=== PATIENT | female | born 1975 | race Caucasian/White ===

== ENCOUNTER 2017-10-14 13:47 | Emergency (ER) | payer BC, OTHER ==
[2017-10-14 14:11] VITALS: BP 129/70
--- NOTE | 2017-10-14 15:18 | UC ---
Throat Pain/Nasal Quentin HPI - HPI Summary HPI Summary: 41 female presents to with complaints of sinus congestion, nasal congestion, left ear pain and some left eye pressure/swelling. "head feels full". Admits to post nasal drip and mucus production. No known fever/chills. No vomiting. Has taken OTC medication without relief. Symptoms began ~ 1 week ago and have worsened. No PMHx. - History of Current Complaint Chief Complaint: UCGeneralIllness Stated Complaint: SINUS/EAR/LFT EYE Time Seen by Provider: 10/14/17 14:34 Hx Obtained From: Patient Hx Last Menstrual Period: OCTOBER 24 Onset/Duration: Sudden Onset, Lasting Weeks - 1, Still Present, Worse Since Severity: Moderate Pain Intensity: 5 Pain Scale Used: 0-10 Numeric Cough: Nonproductive Associated Signs & Symptoms: Positive: Sinus Discomfort, Nasal Discharge - Allergies/Home Medications Allergies/Adverse Reactions: Allergies Allergy/AdvReac Type Severity Reaction Status Date / Time doxycycline Allergy Nausea And Verified 10/14/17 14:03 Vomiting latex Allergy Rash Verified 10/14/17 14:03 Home Medications: Home Medications Multivit-Min/Iron/Folic Acid/K [Multi For Her Softgel] 10/14/17 [History] PMH/Surg Hx/FS Hx/Imm Hx - Additional Past Medical History Additional PMH: Denies DM HTN and PMHx - Surgical History Surgical History: Yes Surgery Procedure, Year, and Place: ABLATION AND [facility]ALKER SOLES. APPENDIX. GALLBLADDER. T&A - Social History Alcohol Use: None Substance Use Type: None Smoking Status (MU): Former Smoker Have You Smoked in the Last Year: No When Did the Patient Quit Smoking/Using Tobacco: 10/2016 Household Exposure Type: Cigarettes Review of Systems Constitutional: Negative ENT: Nasal Discharge, Sinus Congestion, Sinus Pain/Tenderness Respiratory: Cough Cardiovascular: Negative Neurovascular: Negative Musculoskeletal: Negative Neurological: Headache All Other Systems Reviewed And Are Negative: Yes Physical Exam Triage Information Reviewed: Yes Appearance: Well-Appearing - sounds very congested, No Pain Distress, Well- Nourished Vital Signs: Initial Vital Signs Temp 98.2 F 10/14/17 14:02 Pulse 79 10/14/17 14:02 Resp 18 10/14/17 14:02 BP 129/70 10/14/17 14:02 Pulse Ox 98 10/14/17 14:02 Vital Signs Reviewed: Yes Eyes: Positive: Conjunctiva Clear, Other: - no obvious edema noted ENT: Positive: Pharynx normal - post nasal drip ntoed, TMs normal, Sinus tenderness - maxillary and frontal, Uvula midline. Negative: Pharyngeal erythema, Nasal congestion, Tonsillar swelling, Tonsillar exudate Dental: Positive: Percussion Tenderness @ - maxillary and frontal, Cervical Lymphadenopathy Neck: Positive: Supple, Nontender, No Lymphadenopathy Respiratory: Positive: Chest non-tender, Lungs clear, Normal breath sounds, No respiratory distress, No accessory muscle use Cardiovascular: Positive: RRR, No Murmur, Pulses Normal, Brisk Capillary Refill Musculoskeletal: Positive: Strength Intact Neurological: Positive: Alert Skin Exam: Normal Throat Pain/Nasal Course/Dx - Course Course Of Treatment: appears to be suffering from sinusitis. antibiotic and symptomatic measures due to PE findings, HPI and length of symptoms. follow up pcp. aware of worsening signs adn symptoms. increase fluids. - Differential Dx/Diagnosis Differential Diagnosis/HQI/PQRI: Sinusitis, URI Provider Diagnoses: sinusitis Discharge - Discharge Plan Condition: Good Disposition: HOME Prescriptions: Amoxicillin/Clavulanate TAB* [Augmentin TAB 875*] 875 mg PO BID #20 tab Fluticasone NASAL SPRAY 50MCG* [Flonase NASAL SPRAY 50MCG*] 2 spray BOTH NARES DAILY PRN #1 btl PRN Reason: Congestion Patient Education Materials: Sinusitis (ED), Warm Compress or Soak (ED) Referrals: Driss Negro MD [Primary Care Provider] - Additional Instructions: Use prescribed flonase. Take prescribed antibiotic as directed until entire dose is finished. Recommend taking any anti-histamine daily, such as claritin-D or zyrtec-D. Also recommend use of mucinex and nasal saline rinses sold over the counter. Increase fluid intake. Extra pillow at bedtime. Hot showers and humidified air. Ibuprofen for discomfort/headache. Recommend follow up with PCP/ ENT as you had scheduled. Any new or worsening symptoms please seek medical attention.
== END 2017-10-14 15:26 | disposition home or self-care (01) ==
LOC: UCCORT 13:47
DX: J32.9 Chronic sinusitis, unspecified (principal); Z87.891 Personal history of nicotine dependence
CPT/HCPCS: 99202; G0463

== ENCOUNTER 2017-12-23 14:09 | Emergency (ER) | payer BC ==
[2017-12-23 14:31] VITALS: BP 130/58
--- NOTE | 2017-12-23 14:47 | UC ---
Respiratory Complaint HPI - HPI Summary HPI Summary: 41 yo female with 4 day hx of URI symptoms now with bilat otalgia and decreased hearing left ear cough worse now using her rescue inhaler no SOB - History of Current Complaint Chief Complaint: UCGeneralIllness Stated Complaint: UPPER RESPRITORY/SINUS Time Seen by Provider: 12/23/17 14:36 Hx Obtained From: Patient Hx Last Menstrual Period: 10/2008 Onset/Duration: Gradual Onset, Lasting Days Timing: Constant Severity Initially: Mild Severity Currently: Moderate Pain Intensity: 5 Pain Scale Used: 0-10 Numeric Character: Cough: Productive Aggravating Factors: Nothing Alleviating Factors: Bronchodilator Associated Signs And Symptoms: Positive: Wheezing, Nasal Congestion, Sinus Discomfort - Allergies/Home Medications Allergies/Adverse Reactions: Allergies Allergy/AdvReac Type Severity Reaction Status Date / Time doxycycline Allergy Nausea And Verified 12/23/17 14:24 Vomiting latex Allergy Rash Verified 12/23/17 14:24 Tetracyclines Allergy Vomiting Verified 12/23/17 14:24 environmental Allergy Congestion Uncoded 12/23/17 14:24 Home Medications: Home Medications D-Methorphan/PE/Acetaminophen [Daytime Cold-Flu Relief Sftgl] 1 each PO BID 04/04 [History Confirmed 12/23/17] Phenylephrine HCl/Acetaminophn [Sudafed PE Pressure+Pain Cplt] 1 each PO Q6H PRN 12/23/17 [History Confirmed 12/23/17] PMH/Surg Hx/FS Hx/Imm Hx Previously Healthy: Yes Respiratory History: Asthma, Bronchitis - Surgical History Surgical History: Yes Surgery Procedure, Year, and Place: right arm surgery with plate and screws, gallbladder removed , appendectomy,tubal ligation. cyst removed from ovaries, tonsillectomy, partial hysterectomy. Uterine ablation 2008, carpal tunnel - Family History Known Family History: Positive: Cardiac Disease, Hypertension, Diabetes, Respiratory Disease - Social History Alcohol Use: Occasionally Alcohol Amount: 1 Q 6 MONTHS Substance Use Type: None Smoking Status (MU): Former Smoker Type: Cigarettes Amount Used/How Often: 1 PPD 28 YRS Length of Time of Smoking/Using Tobacco: 28 YRS Have You Smoked in the Last Year: Yes When Did the Patient Quit Smoking/Using Tobacco: 12/2016 Household Exposure Type: Cigarettes - Immunization History Most Recent Influenza Vaccination: Not the Season Review of Systems Constitutional: Negative Skin: Negative Eyes: Negative ENT: Ear Ache, Nasal Discharge, Sinus Congestion, Sinus Pain/Tenderness Respiratory: Cough Cardiovascular: Negative Gastrointestinal: Negative Genitourinary: Negative Motor: Negative Neurovascular: Negative Musculoskeletal: Negative Neurological: Negative Psychological: Negative Is Patient Immunocompromised?: No All Other Systems Reviewed And Are Negative: Yes Physical Exam Triage Information Reviewed: Yes Appearance: Well-Appearing, No Pain Distress, Well-Nourished Vital Signs: Initial Vital Signs Temp 98.3 F 12/23/17 14:22 Pulse 88 12/23/17 14:22 Resp 19 12/23/17 14:22 BP 130/58 12/23/17 14:22 Pulse Ox 97 12/23/17 14:22 Eyes: Positive: Conjunctiva Clear ENT: Positive: Pharynx normal, Nasal congestion, TM bulging - L>R, TM red - L, Hoarse voice, Uvula midline. Negative: Hearing grossly normal, Nasal drainage, TMs normal, Tonsillar swelling, Tonsillar exudate, Trismus, Muffled voice, Dental tenderness, Sinus tenderness Neck: Positive: Supple, Nontender, No Lymphadenopathy Respiratory: Positive: No respiratory distress, No accessory muscle use, Wheezing Cardiovascular: Positive: RRR, No Murmur Musculoskeletal: Positive: ROM Intact, No Edema Neurological: Positive: Alert Psychological Exam: Normal Skin Exam: Normal UC Diagnostic Evaluation - Laboratory O2 Sat by Pulse Oximetry: 97 - normal/not hypoxic Respiratory Course/Dx - Differential Dx/Diagnosis Provider Diagnoses: acute bronchitis. Left otitis media. right serous otitis media. viral URI Discharge - Sign-Out/Discharge Documenting (check all that apply): Discharge/Admit/Transfer - Discharge Plan Condition: Stable Disposition: HOME Prescriptions: Amoxicillin PO (*) [Amoxicillin 875 MG (*)] 875 mg PO BID #20 tab Fluconazole 150 MG (NF) [Diflucan 150 mg (NF)] 150 mg PO ONCE #1 tab predniSONE [Deltasone] 40 mg PO DAILY #10 tab Patient Education Materials: Ear Infection (ED), Acute Bronchitis (ED) Referrals: RUIZ Cardoso [Primary Care Provider] - If Needed Additional Instructions: recheck for worsening symptoms see your MD in 2-3 weeks if hearing not back to normal - Billing Disposition and Condition Condition: STABLE Disposition: HOME
== END 2017-12-23 14:50 | disposition home or self-care (01) ==
LOC: UCCORT 14:09
DX: J20.9 Acute bronchitis, unspecified (principal); H66.92 Otitis media, unspecified, left ear; H65.91 Unspecified nonsuppurative otitis media, right ear; J06.9 Acute upper respiratory infection, unspecified; Z87.891 Personal history of nicotine dependence; Z88.3 Allergy status to other anti-infective agents
CPT/HCPCS: 99212; G0463

== ENCOUNTER 2018-02-22 14:29 | Emergency (ER) | payer BC ==
[2018-02-22 15:18] VITALS: BP 111/69
--- NOTE | 2018-02-22 15:48 | UC ---
Throat Pain/Nasal Quentin HPI - HPI Summary HPI Summary: stabbing pain in left ear---fevers, sinus head ache for 3 days - History of Current Complaint Chief Complaint: UCEar Stated Complaint: SINUES,LEFT EAR Time Seen by Provider: 02/22/18 15:43 Hx Obtained From: Patient Hx Last Menstrual Period: October 2008 s/p Ablation ?: No Onset/Duration: Sudden Onset, Worse Since - past 3 days Pain Intensity: 3 Pain Scale Used: 0-10 Numeric Cough: None Associated Signs & Symptoms: Positive: Negative - Allergies/Home Medications Allergies/Adverse Reactions: Allergies Allergy/AdvReac Type Severity Reaction Status Date / Time doxycycline Allergy Nausea And Verified 02/22/18 15:13 Vomiting latex Allergy Rash Verified 02/22/18 15:13 Tetracyclines Allergy Vomiting Verified 02/22/18 15:13 environmental Allergy Congestion Uncoded 02/22/18 15:13 Home Medications: Home Medications Acetaminophen [Acetaminophen Extra Strength] 1,000 mg PO Q4H PRN 02/22/18 [ History Confirmed 02/22/18] Naproxen Sodium [Naproxen 220 mg] 440 mg PO Q12H PRN 02/22/18 [History Confirmed 02/22/18] PMH/Surg Hx/FS Hx/Imm Hx Previously Healthy: Yes - Surgical History Surgical History: Yes Surgery Procedure, Year, and Place: right arm surgery with plate and screws, gallbladder removed , appendectomy,tubal ligation. cyst removed from ovaries, tonsillectomy, partial hysterectomy. Uterine ablation 2008, carpal tunnel - Family History Known Family History: Positive: Cardiac Disease, Hypertension, Diabetes, Respiratory Disease - Social History Occupation: Employed Full-time Lives: With Family Alcohol Use: Rare Alcohol Amount: 1 Q 6 MONTHS Substance Use Type: None Smoking Status (MU): Former Smoker Type: Cigarettes Amount Used/How Often: 1 PPD 28 YRS Length of Time of Smoking/Using Tobacco: 1 PPD x 28 Years Have You Smoked in the Last Year: Yes When Did the Patient Quit Smoking/Using Tobacco: 12/2016 Household Exposure Type: Cigarettes - Immunization History Most Recent Influenza Vaccination: Not the Season Review of Systems Constitutional: Fever, Chills, Fatigue Skin: Negative Eyes: Negative ENT: Ear Ache, Sinus Congestion, Sinus Pain/Tenderness Respiratory: Negative Cardiovascular: Negative Gastrointestinal: Negative Genitourinary: Negative Motor: Negative Neurovascular: Negative Musculoskeletal: Negative Neurological: Negative Psychological: Negative Is Patient Immunocompromised?: No All Other Systems Reviewed And Are Negative: Yes Physical Exam Triage Information Reviewed: Yes Appearance: Well-Appearing, No Pain Distress, Well-Nourished Vital Signs: Initial Vital Signs Temp 99.7 F 02/22/18 15:09 Pulse 90 02/22/18 15:09 Resp 18 02/22/18 15:09 BP 111/69 02/22/18 15:09 Pulse Ox 99 02/22/18 15:09 Vital Signs Reviewed: Yes Eye Exam: Normal Eyes: Positive: Conjunctiva Inflamed ENT Exam: Normal ENT: Positive: Normal ENT inspection, Hearing grossly normal, Pharynx normal, Nasal congestion, Nasal drainage, TM bulging - left, Uvula midline. Negative: Tonsillar swelling, Tonsillar exudate, Trismus, Muffled voice, Hoarse voice, Dental tenderness, Sinus tenderness Dental Exam: Normal Neck exam: Normal Neck: Positive: Supple, Nontender Respiratory Exam: Normal Respiratory: Positive: Chest non-tender, No respiratory distress, No accessory muscle use Cardiovascular Exam: Normal Cardiovascular: Positive: RRR, Pulses Normal, Brisk Capillary Refill Musculoskeletal Exam: Normal Musculoskeletal: Positive: Strength Intact, ROM Intact, No Edema Neurological Exam: Normal Neurological: Positive: Alert Psychological Exam: Normal Throat Pain/Nasal Course/Dx - Course Assessment/Plan: flonase, decongestant, tylenol, ibuprofen, augmentin, follow with pcp prn - Differential Dx/Diagnosis Provider Diagnoses: Acute rhinosinusitis Discharge - Sign-Out/Discharge Documenting (check all that apply): Discharge/Admit/Transfer - Discharge Plan Condition: Stable Disposition: HOME Prescriptions: Amoxicillin/Clavulanate TAB* [Augmentin TAB 875*] 875 mg PO BID #20 tab Patient Education Materials: Sinusitis (ED), How to Use Nasal [place] (ED) Referrals: Nicole Friedman MD [Primary Care Provider] - Parag Hernandez MD [Medical Doctor] - 1 Week - Billing Disposition and Condition Condition: STABLE Disposition: Home
== END 2018-02-22 16:02 | disposition home or self-care (01) ==
LOC: UCCORT 14:29
DX: J01.90 Acute sinusitis, unspecified (principal); Z88.1 Allergy status to other antibiotic agents; Z87.891 Personal history of nicotine dependence
CPT/HCPCS: 99212; G0463